=== PATIENT | male | born 1945 ===

== ENCOUNTER 2022-12-27 09:00 | Inpatient (IN) | payer OTHER ==
[~2022-12-27] VITALS: Ht 167.6 cm; Wt 84.4 kg
[2022-12-30 18:12] LABS: HEMATOCRIT 42.5 % (39.0-48.0); HEMOGLOBIN 14.2 g/dL (13-16.00); MEAN CELL VOLUME 94.4 fL (80.0-100.00); MEAN CORPUSCULAR HEMOGLOBIN 31.4 pg (27.00-32.0); MEAN CORPUSCULAR HGB CONC 33.3 g/dl (32.0-36.0); PLATELET COUNT 264 K/uL (150-450); RED BLOOD COUNT 4.51 M/uL (4.00-6.00); RED CELL DISTRIBUTION WIDTH 14.2 % (11.5-14.5)
[2022-12-30 18:22] LABS: ALBUMIN 3.7 gm/dL (3.4-5.0); CREATININE SERUM 0.72 mg/dL (0.70-1.30); GFR 105.85; MAGNESIUM 1.8 mg/dL (1.8-2.4); PHOSPHOROUS 3.2 mg/dL (2.5-4.9); POTASSIUM 3.93 mEq/L (3.5-5.1)
[2022-12-31 08:22] LABS: HEMATOCRIT 41.3 % (39.0-48.0); MEAN CORPUSCULAR HEMOGLOBIN 31.7 pg (27.00-32.0); MEAN CORPUSCULAR HGB CONC 33.8 g/dl (32.0-36.0); PLATELET COUNT 263 K/uL (150-450); RED CELL DISTRIBUTION WIDTH 14.3 % (11.5-14.5)
[2022-12-31 08:37] LABS: ALBUMIN 3.4 gm/dL (3.4-5.0); CREATININE SERUM 0.92 mg/dL (0.70-1.30); GFR 79.77; MAGNESIUM 1.8 mg/dL (1.8-2.4); PHOSPHOROUS 2.7 mg/dL (2.5-4.9); POTASSIUM 3.43 mEq/L (3.5-5.1)
[2022-12-31] MEDS ORDERED: INTESTINEX680 M1 PO (15:07)
== END 2022-12-31 17:40 | disposition home or self-care (01) | DRG 349 ==
LOC: SURG 12-30 08:15 → O/R 12-30 08:38 → SURG 12-30 09:00 → SURH 12-30 13:19
PROVIDERS: ADMIT Surgery; ATTEND Surgery
PROC: 0DBP7ZZ Excision of Rectum, Via Natural or Artificial Opening (ICD-10-PCS; principal; 2022-12-30 08:15)
DX: D12.8 Benign neoplasm of rectum (principal); Z20.822 Contact with and (suspected) exposure to COVID-19
CPT/HCPCS: 0184T; 45123